=== PATIENT | female | born 1990 | race Caucasian/White ===

== ENCOUNTER 2016-06-14 09:45 | Observation (INO) | payer OTHER ==
[2016-06-14 10:47] LABS: Mean Cell Volume 94.2 fl (78-100); Mean Corpuscular Hemoglobin 30.6 pg (26-32); Mean Platelet Volume 8.8 fl (6-9.5); Platelet Count 230 K/mm3 (150-450); Red Blood Count 3.59 M/mm3 (4.1-5.4); Red Cell Distribution Width 13.6 % (11.5-14.0); White Blood Count 14.4 K/mm3 (4.0-10.5)
[2016-06-14 10:54] VITALS: BP 106/66; PULSE 96
[2016-06-14 11:04] LABS: COMPLETE URINE MICROSCOPIC? NO; Collection Type VOID
[2016-06-14 11:09] LABS: ALBUMIN 2.8 g/dL (3.4-5.0); ALKALINE PHOSPHATASE 106 U/L (46-116); ANION GAP 13.2 MEQ/L (5-15); BILIRUBIN,TOTAL 0.2 mg/dL (0.2-1.0); BLOOD UREA NITROGEN 3 mg/dL (9-20); CHLORIDE 103 mEq/L (98-107); Carbon Dioxide 26.3 mEq/L (21-32); Glucose 87 MG/DL (70-110); Potassium 3.4 mEq/L (3.5-5.1); SGOT/AST 20 U/L (15-37); SGPT/ALT 16 U/L (12-78); SODIUM 139 mEq/L (136-145)
--- NOTE | 2016-06-14 12:33 | XRAY ---
Indication: Decreased movement. Ultrasound biophysical profile study was performed. Comparison: None There is a single viable intrauterine with heart rate detected but not calculated. Four-quadrant PRABHA is 15.6 cm. Largest amniotic pocket measures 6.3 cm. 2 points given for breathing, movements, tone, and amniotic fluid volume. Impression: Total biophysical profile score is 8 out of 8.
[2016-06-14 13:25] LABS: ANISOCYTOSIS 1+; BAND 2 % (0.0-2.0); Hypochromia 1+; Platelet Estimate NORMAL (NORMAL); Polychromasia RARE; Total Cells Counted 100
== END 2016-06-14 12:00 | disposition home or self-care (01) ==
LOC: MED SURG 09:45
PROVIDERS: ADMIT Family Medicine; ATTEND Family Medicine
DX: Z34.03 Encounter for supervision of normal first pregnancy, third trimester (principal)
CPT/HCPCS: 36415; 59025; 76819; 80053; 81002; 85025; G0378

== ENCOUNTER 2016-07-16 11:07 | Observation (INO) | payer OTHER ==
--- NOTE | 2016-07-16 12:39 | XRAY ---
Indication: Decreased movement. Ultrasound biophysical profile study was performed. Comparison: June 14, 2016 There is again single viable intrauterine with four-quadrant PRABHA 16.7 cm. Largest amniotic pocket measures 6.2 cm. 2 points given for breathing, movements, tone, and amniotic fluid volume. Impression: Total biophysical profile score is again 8 out of 8.
[2016-07-16 12:59] VITALS: BP 105/61; PULSE 83
== END 2016-07-16 12:55 | disposition home or self-care (01) ==
LOC: OB 11:07
PROVIDERS: ADMIT Family Medicine; ATTEND Family Medicine
DX: Z34.03 Encounter for supervision of normal first pregnancy, third trimester (principal)
CPT/HCPCS: 59025; 76819; G0378

== ENCOUNTER 2016-07-19 14:57 | Observation (INO) | payer OTHER ==
[2016-07-19 15:53] LABS: Collection Type VOID
[2016-07-19 15:54] LABS: Bacteria RARE /HPF (NEGATIVE); COMPLETE URINE MICROSCOPIC? YES; WBC 0-2 /HPF (0-5)
[2016-07-19 15:57] LABS: BASOPHIL % 0.1 % (0.0-0.4); Eosinophil % 0.7 % (0.00-5.0); Granulocytes % 78.7 % (36.0-66.0); Mean Platelet Volume 10.1 fl (6-9.5); Monocytes % 7.5 % (0.0-12.0); Platelet Count 229 K/mm3 (150-450); Red Blood Count 3.78 M/mm3 (4.1-5.4); White Blood Count 13.5 K/mm3 (4.0-10.5)
[2016-07-19 15:58] LABS: Mean Corpuscular Hemoglobin 30.6 pg (26-32)
[2016-07-19 16:21] LABS: ALBUMIN 2.5 g/dL (3.4-5.0); ALKALINE PHOSPHATASE 124 U/L (46-116); ANION GAP 12.3 MEQ/L (5-15); BLOOD UREA NITROGEN 5 mg/dL (9-20); CHLORIDE 105 mEq/L (98-107); Carbon Dioxide 24.8 mEq/L (21-32); Glucose 104 MG/DL (70-110); Potassium 3.6 mEq/L (3.5-5.1); SGOT/AST 18 U/L (15-37); SGPT/ALT 15 U/L (12-78); SODIUM 139 mEq/L (136-145); Total Protein 6.9 gm/dL (6.4-8.2)
[2016-07-19 18:04] VITALS: BP 102/61; PULSE 91; O2SAT 98
== END 2016-07-19 16:55 | disposition home or self-care (01) ==
LOC: UNDOADMOB 14:57 → MED SURG 14:57 → UNDODISOB 16:55
PROVIDERS: ADMIT Family Medicine; ATTEND Family Medicine
DX: Z34.03 Encounter for supervision of normal first pregnancy, third trimester (principal)
CPT/HCPCS: 36415; 80053; 80307; 81000; 85025; G0378

== ENCOUNTER 2016-07-22 12:39 | Observation (INO) | payer OTHER ==
[2016-07-22] MEDS ORDERED: BRETHINE 1 MG/ML SQ PRN (18:00)
[2016-07-22] MEDS ORDERED: Cervidil 10 MG VAG SCH (19:00)
[2016-07-22] MEDS ORDERED: Zofran 4 MG/2 ML VIAL IV PRN (19:11)
[2016-07-22] MEDS ORDERED: TYLENOL EXTRA STRENGTH 500 MG PO PRN (19:11)
[2016-07-22] MEDS ORDERED: XYLOCAINE 1% HCL 20 ML MDV IJ PRN (19:11)
[2016-07-22] MEDS ORDERED: PITOCIN 30 UNITS/ LR 500 ML 500 ML IV SCH ×2 (19:30)
[2016-07-22 20:38] LABS: Mean Cell Volume 94.4 fl (78-100); Mean Corpuscular Hemoglobin 30.8 pg (26-32); Mean Platelet Volume 10.5 fl (6-9.5); Platelet Count 244 K/mm3 (150-450); Red Blood Count 4.09 M/mm3 (4.1-5.4); Red Cell Distribution Width 14.9 % (11.5-14.0); White Blood Count 16.1 K/mm3 (4.0-10.5)
[2016-07-22 22:17] LABS: Eosinophil 1 % (0.00-3.0); Platelet Estimate NORMAL (NORMAL); Total Cells Counted 100
[2016-07-23] MEDS: Lactated Ringers 1,000 ML IV SCH ×2 (08:43→16:27)
[2016-07-23] MEDS ORDERED: Augmentin 875-125 Tablet PO ONE (17:26)
[2016-07-23 18:03] VITALS: BP 102/58; PULSE 83
== END 2016-07-23 17:50 | disposition home or self-care (01) ==
LOC: OB 18:21
PROVIDERS: ADMIT Family Medicine; ATTEND Family Medicine
DX: O61.0 Failed medical induction of labor (principal); Z3A.40 40 weeks gestation of pregnancy
CPT/HCPCS: 36415; 80307; 85025; G0378; J2590; A9270-GY

== ENCOUNTER 2016-07-24 07:01 | Inpatient (IN) | payer OTHER ==
[2016-07-24] MEDS ORDERED: XYLOCAINE 1% HCL 20 ML MDV IJ PRN (07:23)
[2016-07-24] MEDS ORDERED: Augmentin 875-125 Tablet PO ONE (07:25)
[2016-07-24 08:37] LABS: BASOPHIL % 0.2 % (0.0-0.4); Eosinophil % 0.8 % (0.00-5.0); Granulocytes % 76.8 % (36.0-66.0); Lymphocytes % 12.8 % (24.0-44.0); Monocytes % 9.4 % (0.0-12.0); Platelet Count 227 K/mm3 (150-450); Red Blood Count 3.63 M/mm3 (4.1-5.4); Red Cell Distribution Width 15.1 % (11.5-14.0)
[2016-07-24 10:23] LABS: Mean Corpuscular Hemoglobin 30.8 pg (26-32)
[2016-07-24] MEDS: Lactated Ringers 1,000 ML IV SCH (21:43)
[2016-07-24] MEDS: PITOCIN 30 UNITS/ LR 500 ML 500 ML IV SCH (21:43)
[2016-07-24] MEDS ORDERED: BRETHINE 1 MG/ML SQ PRN (21:44)
[2016-07-24] MEDS ORDERED: PITOCIN 30 UNITS/ LR 500 ML 500 ML IV SCH (22:00)
[2016-07-24] MEDS ORDERED: Lactated Ringers 1,000 ML IV ONE (23:10)
[2016-07-24] MEDS ORDERED: OB EPIDURAL NAROPIN/SUFENTANIL IN NACL EPIDURAL PRN (23:10)
[2016-07-24] MEDS ORDERED: Ephedrine Sulfate 50 MG/ML IV PRN (23:10)
[2016-07-24] MEDS: OMNIPEN 1GM / NaCl 100ML 100 ML IV SCH (23:16)
[2016-07-25] MEDS: OMNIPEN 1GM / NaCl 100ML 100 ML IV SCH ×5 (02:47→19:38)
[2016-07-25] MEDS: Lactated Ringers 1,000 ML IV SCH ×3 (08:29→17:16)
[2016-07-25] MEDS ORDERED: Sensorcaine 0.25% 10 ML ONE (15:28)
[2016-07-25] MEDS: PITOCIN 30 UNITS/ LR 500 ML 500 ML IV SCH (18:00)
[2016-07-25] MEDS ORDERED: Dulcolax 10 MG SUPP PR PRN (19:04)
[2016-07-25] MEDS ORDERED: Adacel Vial IM ONE (19:04)
[2016-07-25] MEDS ORDERED: CORTISONE 1% CREAM TP PRN (19:04)
[2016-07-25] MEDS ORDERED: LANSINOH 40 GM TOP PRN (19:04)
[2016-07-25] MEDS ORDERED: NORCO 5/325 MG PO PRN (19:04)
[2016-07-25] MEDS ORDERED: Mylicon 80MG PO PRN (19:04)
[2016-07-25] MEDS ORDERED: TYLENOL EXTRA STRENGTH 500 MG PO PRN (19:04)
[2016-07-25] MEDS ORDERED: Dermoplast Spray TP PRN (19:04)
[2016-07-25] MEDS ORDERED: Anucort-HC SUPPOSITORY PR PRN (19:04)
[2016-07-25] MEDS ORDERED: Ambien 10 MG PO PRN (19:04)
[2016-07-25] MEDS ORDERED: Restoril 15 MG PO PRN (19:04)
[2016-07-25] MEDS ORDERED: TUCKS TP PRN (19:04)
[2016-07-25] MEDS ORDERED: OMNIPEN 1 GM IV ONE (20:00)
[2016-07-25] MEDS ORDERED: OMNIPEN 1GM / NaCl 100ML 100 ML ONE (20:01)
[2016-07-25] MEDS: OMNIPEN 1 GM IV SCH (20:19)
[2016-07-25 22:32] VITALS: O2SAT 98
[2016-07-25] MEDS: Colace 100 MG PO SCH (22:52)
[2016-07-26] MEDS: OMNIPEN 1 GM IV SCH ×2 (00:15→04:15)
[2016-07-26] MEDS ORDERED: OMNIPEN 1GM / NaCl 100ML 100 ML ONE ×2 (00:36→04:06)
[2016-07-26] MEDS: MOTRIN 400 MG PO PRN ×2 (02:10→11:08)
[2016-07-26 06:01] LABS: Mean Cell Volume 97.2 fl (78-100); Mean Platelet Volume 10.4 fl (6-9.5); Platelet Count 176 K/mm3 (150-450); Red Blood Count 3.26 M/mm3 (4.1-5.4); Red Cell Distribution Width 15.4 % (11.5-14.0); White Blood Count 20.5 K/mm3 (4.0-10.5)
[2016-07-26 06:10] LABS: Mean Corpuscular Hemoglobin 31.2 pg (26-32)
[2016-07-26 07:38] LABS: ANISOCYTOSIS 1+; Platelet Estimate NORMAL (NORMAL); Total Cells Counted 100
[2016-07-26 07:47] LABS: BAND 21 % (0.0-2.0)
[2016-07-26] MEDS ORDERED: OMNIPEN 1GM / NaCl 100ML 100 ML IV SCH (08:00)
[2016-07-26] MEDS: FERREX 150 PO SCH (10:55)
[2016-07-26] MEDS: Colace 100 MG PO SCH ×2 (10:55→21:26)
[2016-07-26] MEDS: Augmentin 875-125 Tablet PO SCH (21:26)
[2016-07-27] MEDS: MOTRIN 400 MG PO PRN ×2 (06:52→14:18)
[2016-07-27] MEDS: FERREX 150 PO SCH (09:14)
[2016-07-27] MEDS: Colace 100 MG PO SCH (09:14)
[2016-07-27] MEDS: Augmentin 875-125 Tablet PO SCH (09:14)
[2016-07-27 14:18] VITALS: BP 108/59; PULSE 82
== END 2016-07-27 19:50 | disposition home or self-care (01) | DRG 775 ==
LOC: OB 07:01 → OBSVTOIN 07-25 08:14 → OB 07-25 23:52
PROVIDERS: ADMIT Family Medicine; ATTEND Family Medicine
PROC: 10E0XZZ Delivery of Products of Conception, External Approach (ICD-10-PCS; principal; 2016-07-25)
PROC: 0KQM0ZZ Repair Perineum Muscle, Open Approach (ICD-10-PCS; 2016-07-25)
DX: O70.1 Second degree perineal laceration during delivery (principal); Z37.0 Single live birth; Z3A.40 40 weeks gestation of pregnancy; D72.829 Elevated white blood cell count, unspecified
CPT/HCPCS: 01967; 36415; 59025; 85025; 90715; 93012; G0378; J0290; J2590; J2795; A9270-GY

== ENCOUNTER 2018-08-24 12:51 | Observation (INO) | payer BC ==
[2018-08-24] MEDS ORDERED: Sodium Chloride 0.9% 1000 ML 1,000 ML IV SCH (14:00)
[2018-08-24 14:10] LABS: BASOPHIL % 0.1 % (0.0-0.4); Basophil (Absolute #) 0.01 (0-0.4); Eosinophil % 1.3 % (0.00-5.0); Eosinophil (Absolute #) 0.11 (0-0.5); Granulocyte Absolute (ANC) 6.59 (1.4-6.9); Granulocytes % 79.7 % (36.0-66.0); Lymphocyte (Absolute #) 0.93 (1.0-4.6); Lymphocytes % 11.2 % (24.0-44.0); Mean Cell Volume 93.4 fl (78-100); Mean Corpuscular Hemoglobin 32.8 pg (26-32); Mean Corpuscular Hgb Concent. 35.1 g/dl (32-36); Mean Platelet Volume 9.5 fl (6-9.5); Monocyte (Absolute #) 0.64 (0.0-1.3); Monocytes % 7.7 % (0.0-12.0); Platelet Count 229 K/mm3 (150-450); Red Blood Count 3.96 M/mm3 (4.1-5.4); Red Cell Distribution Width 12.5 % (11.5-14.0); White Blood Count 8.3 K/mm3 (4.0-10.5)
[2018-08-24] MEDS: Phenergan 25 MG INJ IV PRN ×2 (14:15→20:20)
[2018-08-24 14:21] LABS: ALBUMIN 3.7 g/dL (3.5-5.0); ALKALINE PHOSPHATASE 87 U/L (38-126); AMYLASE 60 U/L (30-110); ANION GAP 10.9 MEQ/L (5-15); BLOOD UREA NITROGEN 3 mg/dL (7-17); CHLORIDE 104 mmol/L (98-107); Calcium 9.1 mg/dL (8.4-10.2); Carbon Dioxide 24 mmol/L (22-30); Creatinine 1 0.48 mg/dL (0.52-1.04); Glucose 83 mg/dL (74-106); Potassium 3.4 mmol/L (3.5-5.1); SGOT/AST 17 U/L (14-36); SGPT/ALT 11 U/L (0-35); SODIUM 136 mmol/L (137-145); Total Protein 7.1 g/dL (6.3-8.2)
[2018-08-24 14:47] LABS: INFLUENZA A NEGATIVE (NEGATIVE); INFLUENZA B NEGATIVE (NEGATIVE); RESPIRATORY SYNCTIAL VIRUS NEGATIVE (Negative)
[2018-08-24] MEDS: Lactated Ringers 1,000 ML IV SCH ×2 (15:27→22:16)
[2018-08-24 18:00] LABS: Appearance CLEAR (CLEAR); Bilirubin NEGATIVE (NEGATIVE); Blood NEGATIVE Ery/ul (0-5); Glucose NEGATIVE (NEGATIVE); Ketones SMALL (NEGATIVE); Leukocyte Esterase NEGATIVE (NEGATIVE); Mucus SLIGHT /HPF (NEGATIVE); Nitrite NEGATIVE (NEGATIVE); Protein,Urine Dip NEGATIVE (Negative); Specific Gravity 1.003 (1.005-1.025); Urobilinogen NEGATIVE mg/dL (0-1)
[2018-08-24] MEDS ORDERED: TYLENOL 325 MG PO PRN (20:17)
[2018-08-25] MEDS: Lactated Ringers 1,000 ML IV SCH (05:53)
[2018-08-25 06:02] LABS: BASOPHIL % 0.4 % (0.0-0.4); Basophil (Absolute #) 0.02 (0-0.4); Eosinophil % 4.7 % (0.00-5.0); Eosinophil (Absolute #) 0.24 (0-0.5); Granulocyte Absolute (ANC) 2.48 (1.4-6.9); Granulocytes % 48.6 % (36.0-66.0); Hematocrit 33.6 % (35-47); Hemoglobin 11.6 gm/dl (12.0-16.0); Lymphocyte (Absolute #) 1.86 (1.0-4.6); Lymphocytes % 36.5 % (24.0-44.0); Mean Cell Volume 94.6 fl (78-100); Mean Corpuscular Hgb Concent. 34.5 g/dl (32-36); Mean Platelet Volume 9.8 fl (6-9.5); Monocytes % 9.8 % (0.0-12.0); Platelet Count 208 K/mm3 (150-450); Red Blood Count 3.55 M/mm3 (4.1-5.4); Red Cell Distribution Width 12.6 % (11.5-14.0); White Blood Count 5.1 K/mm3 (4.0-10.5)
[2018-08-25 06:12] LABS: Mean Corpuscular Hemoglobin 32.6 pg (26-32)
[2018-08-25 06:27] LABS: ALKALINE PHOSPHATASE 70 U/L (38-126); ANION GAP 7.8 MEQ/L (5-15); CHLORIDE 108 mmol/L (98-107); Carbon Dioxide 25 mmol/L (22-30); Creatinine 1 0.41 mg/dL (0.52-1.04); Glucose 84 mg/dL (74-106); Potassium 3.5 mmol/L (3.5-5.1); SGOT/AST 15 U/L (14-36); SGPT/ALT 10 U/L (0-35); SODIUM 137 mmol/L (137-145); Total Protein 6.1 g/dL (6.3-8.2)
[2018-08-25 06:46] LABS: BLOOD UREA NITROGEN 2 mg/dL (7-17)
--- NOTE | 2018-08-25 07:57 | PCM.HP.ADD ---
Addendum to History & Physical - History & Physical Addendum Addendum to History & Physical: This certifies that the History & Physical in the electronic chart reflects the current health status of the patient. If there are changes in the H&P these changes/exceptions are listed as follows.
--- NOTE | 2018-08-25 09:01 | PCM.DS ---
Discharge Summary Date of Admission: 08/24/18 12:51 Admitting Physician: MYRA CURTIS Primary Care Provider: MYRA CURTIS Allergies Allergies cefadroxil [From [facility] [place]] Allergy (Severe, Verified 07/23/16 03:35) [facility] Summary - Hospital Course Hospital Course: Pt is 28 go at 14 weeks who was seen in office by me yesterday for fever, nausea, and vomiting. She was admitted to [facility] for IV fluids. She did have Tmax of 102.8 here last night but none since then. With IV fluids has felt much better, tolerated clear and full liquid diets, now hungry for more substantial food. Has been congested and still c/o nasal congestion. FHT wnl in the office, none done here since admission. Her WBC were wnl on admission, 8.3, and are 5.1 this morning. Plt 208. Potassium a little low on admission, 3.4, but 3.5 this morning. Bicarb 24 at admission and 25 now. BUN/Cr have been wnl. Flu neg. Will advance to bland diet, FHT, flonase, then ok to d/c home. - Vitals & Intake/Output Vital Signs: Vital Signs Temperature 97.1 F 08/25/18 04:00 Pulse Rate 69 08/25/18 04:00 Respiratory Rate 16 08/25/18 04:00 Blood Pressure 115/61 08/25/18 04:00 O2 Sat by Pulse Oximetry 98 08/25/18 04:00 Intake & Output: Intake & Output 08/22/18 08/23/18 08/24/18 08/25/18 11:59 11:59 11:59 11:59 Intake Total 4040 Balance 4040 Weight 96.5 kg - Lab Result Diagrams: 08/25/18 05:30 08/25/18 05:30 Lab Results-Last 24 Hrs: Lab Results-Last 24 Hours 08/24/18 08/24/18 08/24/18 Range/Units 14:08 14:08 14:08 WBC 8.3 (4.0-10.5) K/mm3 RBC 3.96 L (4.1-5.4) M/mm3 Hgb 13.0 (12.0-16.0) gm/dl Hct 37.0 (35-47) % MCV 93.4 (78-100) fl MCH 32.8 H (26-32) pg MCHC 35.1 (32-36) g/dl RDW 12.5 (11.5-14.0) % Plt Count 229 (150-450) K/mm3 MPV 9.5 (6-9.5) fl Gran % 79.7 H (36.0-66.0) % Eos # (Auto) 0.11 (0-0.5) Absolute Lymphs (auto) 0.93 L (1.0-4.6) Absolute Monos (auto) 0.64 (0.0-1.3) Lymphocytes % 11.2 L (24.0-44.0) % Monocytes % 7.7 (0.0-12.0) % Eosinophils % 1.3 (0.00-5.0) % Basophils % 0.1 (0.0-0.4) % Absolute Granulocytes 6.59 (1.4-6.9) Basophils # 0.01 (0-0.4) Sodium 136 L (137-145) mmol/L Potassium 3.4 L (3.5-5.1) mmol/L Chloride 104 (98-107) mmol/L Carbon Dioxide 24 (22-30) mmol/L Anion Gap 10.9 (5-15) MEQ/L BUN 3 L (7-17) mg/dL Creatinine 0.48 L (0.52-1.04) mg/dL Estimated GFR > 60.0 ML/MIN Glucose 83 (74-106) mg/dL Calcium 9.1 (8.4-10.2) mg/dL Total Bilirubin 0.30 (0.2-1.3) mg/dL AST 17 (14-36) U/L ALT 11 (0-35) U/L Alkaline Phosphatase 87 (38-126) U/L Serum Total Protein 7.1 (6.3-8.2) g/dL Albumin 3.7 (3.5-5.0) g/dL Amylase 60 (30-110) U/L Lipase 75 (23-300) U/L Urine Color (YELLOW) Urine Appearance (CLEAR) Urine pH (5-6) Ur Specific Suring (1.005-1.025) Urine Protein (Negative) Urine Ketones (NEGATIVE) Urine Blood (0-5) Logan/ul Urine Nitrite (NEGATIVE) Urine Bilirubin (NEGATIVE) Urine Urobilinogen (0-1) mg/dL Ur Leukocyte Esterase (NEGATIVE) Urine WBC (Auto) (0-5) /HPF Urine RBC (Auto) (0-2) /HPF U Epithel Cells (Auto) (FEW) /HPF Urine Bacteria (Auto) (NEGATIVE) /HPF Urine Mucus (Auto) (NEGATIVE) /HPF Urine Culture Reflexed (NO) Urine Glucose (NEGATIVE) mg/dL Influenza Type A Ag NEGATIVE (NEGATIVE) Influenza Type B Ag NEGATIVE (NEGATIVE) RSV (PCR) NEGATIVE (Negative) 08/24/18 08/25/18 08/25/18 Range/Units 17:47 05:30 05:30 WBC 5.1 (4.0-10.5) K/mm3 RBC 3.55 L (4.1-5.4) M/mm3 Hgb 11.6 L (12.0-16.0) gm/dl Hct 33.6 L (35-47) % MCV 94.6 (78-100) fl MCH 32.6 H (26-32) pg MCHC 34.5 (32-36) g/dl RDW 12.6 (11.5-14.0) % Plt Count 208 (150-450) K/mm3 MPV 9.8 H (6-9.5) fl Gran % 48.6 (36.0-66.0) % Eos # (Auto) 0.24 (0-0.5) Absolute Lymphs (auto) 1.86 (1.0-4.6) Absolute Monos (auto) 0.50 (0.0-1.3) Lymphocytes % 36.5 (24.0-44.0) % Monocytes % 9.8 (0.0-12.0) % Eosinophils % 4.7 (0.00-5.0) % Basophils % 0.4 (0.0-0.4) % Absolute Granulocytes 2.48 (1.4-6.9) Basophils # 0.02 (0-0.4) Sodium 137 (137-145) mmol/L Potassium 3.5 (3.5-5.1) mmol/L Chloride 108 H (98-107) mmol/L Carbon Dioxide 25 (22-30) mmol/L Anion Gap 7.8 (5-15) MEQ/L BUN 2 L (7-17) mg/dL Creatinine 0.41 L (0.52-1.04) mg/dL Estimated GFR > 60.0 ML/MIN Glucose 84 (74-106) mg/dL Calcium 9.0 (8.4-10.2) mg/dL Total Bilirubin 0.20 (0.2-1.3) mg/dL AST 15 (14-36) U/L ALT 10 (0-35) U/L Alkaline Phosphatase 70 (38-126) U/L Serum Total Protein 6.1 L (6.3-8.2) g/dL Albumin 3.0 L (3.5-5.0) g/dL Amylase (30-110) U/L Lipase (23-300) U/L Urine Color STRAW (YELLOW) Urine Appearance CLEAR (CLEAR) Urine pH 6.0 (5-6) Ur Specific Suring 1.003 (1.005-1.025) Urine Protein NEGATIVE (Negative) Urine Ketones SMALL (NEGATIVE) Urine Blood NEGATIVE (0-5) Logan/ul Urine Nitrite NEGATIVE (NEGATIVE) Urine Bilirubin NEGATIVE (NEGATIVE) Urine Urobilinogen NEGATIVE (0-1) mg/dL Ur Leukocyte Esterase NEGATIVE (NEGATIVE) Urine WBC (Auto) NONE (0-5) /HPF Urine RBC (Auto) NONE (0-2) /HPF U Epithel Cells (Auto) NONE (FEW) /HPF Urine Bacteria (Auto) NONE (NEGATIVE) /HPF Urine Mucus (Auto) SLIGHT (NEGATIVE) /HPF Urine Culture Reflexed NO (NO) Urine Glucose NEGATIVE (NEGATIVE) mg/dL Influenza Type A Ag (NEGATIVE) Influenza Type B Ag (NEGATIVE) RSV (PCR) (Negative) Discharge Exam General Appearance: no apparent distress, alert Neurologic Exam: oriented x 3, cooperative Eye Exam: eyes nml inspection Ears, Nose, Throat Exam: moist mucous membranes Neck Exam: normal inspection Respiratory Exam: normal breath sounds, lungs clear, No crackles/rales, No rhonchi, No wheezing Cardiovascular Exam: regular rate/rhythm, normal heart sounds, No murmur Gastrointestinal/Abdomen Exam: soft, normal bowel sounds, No tenderness, No distention, No mass, No guarding, No rebound Extremity Exam: normal inspection, No pedal edema, No swelling Skin Exam: normal color, warm, dry, No rash Final Diagnosis/Problem List - Final Discharge Diagnosis/Problem (1) Second trimester Current Visit: Yes Status: Acute Assessment & Plan: Stable Code(s): Z34.92 - ENCNTR FOR SUPRVSN OF NORMAL PREG, UNSP, SECOND TRIMESTER (2) Vomiting Current Visit: Yes Status: Resolved Assessment & Plan: had phenergan and IV fluids. Likely viral illness. Code(s): R11.10 - VOMITING, UNSPECIFIED (3) Fever Current Visit: Yes Status: Acute Assessment & Plan: Likely viral illness. Tylenol prn temp > 100. will d/c to home today. Code(s): R50.9 - FEVER, UNSPECIFIED (4) Nasal congestion Current Visit: Yes Status: Acute Assessment & Plan: flonase Code(s): R09.81 - NASAL CONGESTION - Discharge Disposition: Home, Self-Care Condition: Good Prescriptions: New Acetaminophen 650 mg PO Q6H PRN #30 capsule PRN Reason: Fever Fluticasone Propionate [Flonase NASAL] 1 gm NS DAILY bottle Promethazine HCl 12.5 mg PO Q6H PRN #10 tablet PRN Reason: Nausea/Vomiting Continue Vits W-Ca,Fe,FA(<1Mg) [] 1 tab PO DAILY Follow up with: MYRA CURTIS [Primary Care Provider] - 1 Week
[2018-08-25 09:34] VITALS: BP 104/59; PULSE 78; O2SAT 97
[2018-08-25] MEDS ORDERED: Flonase NASAL NS SCH (10:00)
== END 2018-08-25 10:28 | disposition home or self-care (01) ==
LOC: MED SURG 12:51
PROVIDERS: ADMIT Family Medicine; ATTEND Family Medicine
DX: O21.9 Vomiting of pregnancy, unspecified (principal); Z3A.14 14 weeks gestation of pregnancy; E86.0 Dehydration; R50.9 Fever, unspecified; R09.81 Nasal congestion; R10.9 Unspecified abdominal pain
CPT/HCPCS: 36415; 80053; 81001; 82150; 83690; 85025; 87631; G0378; J2550; A9270-GY

== ENCOUNTER 2018-12-17 14:29 | Observation (INO) | payer OTHER ==
[2018-12-17 15:43] VITALS: BP 106/70; PULSE 102
== END 2018-12-17 16:05 | disposition home or self-care (01) ==
LOC: MED SURG 14:29 → UNDOADMOB 14:29 → OB 14:29
PROVIDERS: ADMIT Family Medicine; ATTEND Family Medicine
DX: Z34.83 Encounter for supervision of other normal pregnancy, third trimester (principal)
CPT/HCPCS: 59025; G0378; 81003

== ENCOUNTER 2019-02-12 20:57 | Observation (INO) | payer OTHER ==
[2019-02-12 21:34] VITALS: O2SAT 95
[2019-02-12 21:35] LABS: Appearance SLIGHTLY CLOUDY (CLEAR); Bilirubin NEGATIVE (NEGATIVE); Blood NEGATIVE Ery/ul (0-5); Epithelial Cells FEW /HPF (FEW); Glucose NEGATIVE (NEGATIVE); Ketones NEGATIVE (NEGATIVE); Leukocyte Esterase NEGATIVE (NEGATIVE); Nitrite NEGATIVE (NEGATIVE); Protein,Urine Dip NEGATIVE (Negative); Specific Gravity 1.005 (1.005-1.025); Urobilinogen NEGATIVE mg/dL (0-1); WBC 0-2 /HPF (0-5)
[2019-02-12 21:59] LABS: Hematocrit 36.7 % (35-47); Hemoglobin 11.8 gm/dl (12.0-16.0); Mean Cell Volume 98.9 fl (78-100); Mean Corpuscular Hemoglobin 31.8 pg (26-32); Mean Corpuscular Hgb Concent. 32.2 g/dl (32-36); Platelet Count 223 K/mm3 (150-450); Red Blood Count 3.71 M/mm3 (4.1-5.4); Red Cell Distribution Width 14.6 % (11.5-14.0); White Blood Count 16.5 K/mm3 (4.0-10.5)
[2019-02-12 22:07] LABS: Amphetamine,Urine NEGATIVE (NEGATIVE); Barbiturate,Urine NEGATIVE (NEGATIVE); Benzodiazepine,Urine NEGATIVE (NEGATIVE); Cocaine,Urine NEGATIVE (NEGATIVE); Methadone,Urine NEGATIVE (NEGATIVE); Opiate,Urine NEGATIVE (NEGATIVE); PCP,Urine NEGATIVE (NEGATIVE); THC,Urine NEGATIVE (NEGATIVE)
[2019-02-12 22:25] LABS: ALBUMIN 3.4 g/dL (3.5-5.0); ALKALINE PHOSPHATASE 113 U/L (38-126); ANION GAP 8.9 MEQ/L (5-15); BLOOD UREA NITROGEN 4 mg/dL (7-17); CHLORIDE 107 mmol/L (98-107); Calcium 9.3 mg/dL (8.4-10.2); Carbon Dioxide 24 mmol/L (22-30); Creatinine 1 0.47 mg/dL (0.52-1.04); Glucose 98 mg/dL (74-106); SGOT/AST 26 U/L (14-36); SGPT/ALT 11 U/L (0-35); SODIUM 136 mmol/L (137-145)
[2019-02-12] MEDS ORDERED: Sodium Chloride 0.9% 1000 ML 1,000 ML IV STA (23:01)
[2019-02-12] MEDS ORDERED: TYLENOL 325 MG PO PRN (23:03)
[2019-02-12] MEDS ORDERED: Sodium Chloride 0.9% 1000 ML 1,000 ML ONE (23:05)
[2019-02-12] MEDS ORDERED: TYLENOL 325 MG ONE (23:05)
[2019-02-12] MEDS ORDERED: Lactated Ringers 1,000 ML IV ONE (23:06)
[2019-02-12] MEDS ORDERED: Lactated Ringers 1,000 ML IV SCH (23:30)
[2019-02-13 00:52] LABS: BAND 1 % (0.0-2.0); Eosinophil 2 % (0.00-3.0); Lymphocytes 16 % (24-44); Monocyte 4 % (0.0-12.0); Neutrophils 77 % (36.0-66.0); Platelet Estimate NORMAL (NORMAL); Total Cells Counted 100
[2019-02-13 03:38] VITALS: BP 110/59; PULSE 96
== END 2019-02-13 02:20 | disposition home or self-care (01) ==
LOC: OB 20:57
PROVIDERS: ADMIT Family Medicine; ATTEND Family Medicine
DX: Z34.83 Encounter for supervision of other normal pregnancy, third trimester (principal)
CPT/HCPCS: 36415; 80053; 80307; 81001; 84550; 85025; G0378; A9270-GY

== ENCOUNTER 2019-02-22 13:57 | Observation (INO) | payer OTHER ==
[2019-02-22 16:17] VITALS: BP 104/68; PULSE 108; O2SAT 98
== END 2019-02-22 15:10 | disposition home or self-care (01) ==
LOC: OB 13:57
PROVIDERS: ADMIT Family Medicine; ATTEND Family Medicine
DX: Z34.83 Encounter for supervision of other normal pregnancy, third trimester (principal)
CPT/HCPCS: 59025; G0378

== ENCOUNTER 2019-02-24 06:22 | Inpatient (IN) | payer OTHER ==
[~2019-02-24 06:22] MED LIST: BRETHINE 1 MG/ML SQ PRN; PITOCIN 30 UNITS/ LR 500 ML 500 ML IV SCH
[2019-02-24] MEDS ORDERED: Lactated Ringers 1,000 ML IV ONE (08:52)
[2019-02-24] MEDS ORDERED: XYLOCAINE 1% HCL 20 ML MDV IJ PRN (08:52)
[2019-02-24] MEDS ORDERED: OB EPIDURAL NAROPIN/SUFENTANIL IN NACL EPIDURAL PRN (08:52)
[2019-02-24] MEDS ORDERED: Ephedrine Sulfate 50 MG/ML IV PRN (08:52)
[2019-02-24 08:59] LABS: Hematocrit 36.5 % (35-47); Hemoglobin 11.8 gm/dl (12.0-16.0); Mean Cell Volume 98.9 fl (78-100); Mean Corpuscular Hgb Concent. 32.3 g/dl (32-36); Mean Platelet Volume 10.8 fl (7.5-11.0); Platelet Count 192 K/mm3 (150-450); Red Blood Count 3.69 M/mm3 (4.1-5.4); Red Cell Distribution Width 14.8 % (11.5-14.0); White Blood Count 14.7 K/mm3 (4.0-10.5)
[2019-02-24] MEDS ORDERED: XYLOCAINE 2%/Epi 1:200000 20ML VIAL MPF IJ ONE (10:00)
[2019-02-24 10:02] LABS: Eosinophil 1 % (0.00-3.0); Lymphocytes 11 % (24-44); Monocyte 1 % (0.0-12.0); Neutrophils 87 % (36.0-66.0); Total Cells Counted 100
[2019-02-24 10:03] LABS: Platelet Estimate NORMAL (NORMAL)
[2019-02-24 10:40] LABS: Amphetamine,Urine NEGATIVE (NEGATIVE); Barbiturate,Urine NEGATIVE (NEGATIVE); Benzodiazepine,Urine NEGATIVE (NEGATIVE); Cocaine,Urine NEGATIVE (NEGATIVE); Methadone,Urine NEGATIVE (NEGATIVE); Opiate,Urine NEGATIVE (NEGATIVE); PCP,Urine NEGATIVE (NEGATIVE); THC,Urine NEGATIVE (NEGATIVE)
[2019-02-24] MEDS: Lactated Ringers 1,000 ML IV SCH ×3 (13:30→18:46)
[2019-02-24] MEDS ORDERED: Dermoplast Spray TP PRN (20:57)
[2019-02-24] MEDS ORDERED: TYLENOL EXTRA STRENGTH 500 MG PO PRN (20:57)
[2019-02-24] MEDS ORDERED: Dulcolax 10 MG SUPP PR PRN (20:57)
[2019-02-24] MEDS ORDERED: CORTISONE 1% CREAM TP PRN (20:57)
[2019-02-24] MEDS ORDERED: Ambien 10 MG PO PRN (20:57)
[2019-02-24] MEDS ORDERED: Anucort-HC SUPPOSITORY PR PRN (20:57)
[2019-02-24] MEDS ORDERED: LANSINOH 40 GM TOP PRN (20:57)
[2019-02-24] MEDS ORDERED: TUCKS TP PRN (20:57)
[2019-02-24] MEDS ORDERED: Mylicon 80MG PO PRN (20:57)
[2019-02-25] MEDS: Colace 100 MG PO SCH ×3 (01:08→21:10)
[2019-02-25] MEDS: MOTRIN 400 MG PO PRN ×3 (03:56→19:25)
[2019-02-25 05:09] LABS: Hematocrit 34.2 % (35-47); Hemoglobin 11.1 gm/dl (12.0-16.0); Mean Cell Volume 98.6 fl (78-100); Mean Corpuscular Hgb Concent. 32.5 g/dl (32-36); Mean Platelet Volume 10.3 fl (7.5-11.0); Platelet Count 191 K/mm3 (150-450); Red Blood Count 3.47 M/mm3 (4.1-5.4); White Blood Count 17.6 K/mm3 (4.0-10.5)
[2019-02-25 05:51] LABS: ABO TYPING AB; Antibody Screen NEGATIVE (NEGATIVE); RH TYPING POSITIVE
[2019-02-25] MEDS ORDERED: CLINDAMYCIN-D5W 900 MG/50 ML*** 900 MG/50 ML BAG IV SCH (06:00)
[2019-02-25] MEDS ORDERED: Reglan 10 MG/2 ML IV SCH (06:00)
[2019-02-25] MEDS ORDERED: Lactated Ringers 1,000 ML IV ONE (06:00)
[2019-02-25] MEDS ORDERED: BICITRA 30 ML CUP PO SCH (06:00)
[2019-02-25] MEDS ORDERED: Pepcid 20 MG VIAL IV SCH (06:00)
[2019-02-25 06:10] LABS: BAND 1 % (0.0-2.0); Lymphocytes 14 % (24-44); Monocyte 5 % (0.0-12.0); Neutrophils 80 % (36.0-66.0); Platelet Estimate NORMAL (NORMAL); Total Cells Counted 100
[2019-02-25] MEDS ORDERED: Sensorcaine 0.25% 10 ML ONE (06:14)
[2019-02-25] MEDS: Lactated Ringers 1,000 ML IV SCH (06:37)
[2019-02-25] MEDS ORDERED: Xylocaine-Mpf 2% 5 Ml Vial ONE (06:51)
[2019-02-25] MEDS ORDERED: Versed 2 MG/2 ML Injection ONE ×2 (07:07→07:11)
[2019-02-25] MEDS ORDERED: Marcaine 0.5%/Epinephrine 10 ML ONE (07:12)
--- NOTE | 2019-02-25 08:25 | OP ---
SURGERY DATE/TIME: 02/25/2019 0705 PREOPERATIVE DIAGNOSIS: Undesired fertility. POSTOPERATIVE DIAGNOSIS: Undesired fertility. PROCEDURE: Bilateral tubal ligation by partial salpingectomy . SURGEON: Dr. Akhtar. ANESTHESIA: Epidural. BRIEF HISTORY: The patient is a 28 year-old white female present now for elective sterilization procedure. The patient was apprised of the risks of the procedure including wound infection, bleeding, injury to intraabdominal organs and failure rate of the tubal procedure of 1:300. The patient verbalized her understanding and desired to have the procedure performed. DESCRIPTION OF PROCEDURE: The patient was prepped and draped in the supine position. She was given 900 mg of Cleocin prior to the procedure. The area was prepped and draped in sterile fashion. Marcaine was used to anesthetize the area over the incision. A 3 cm subumbilical incision was made in a horizontal fashion and carried down sharply through the fascia. The peritoneal cavity was then entered. The left fallopian tube was identified and carried down to its fimbriated end. It was elevated in its mid portion with a Bobby clamp. A hemostat was passed through an avascular section of the mesosalpinx and the tube was tied on either side of the elevated area and the interceding section excised. The exposed edges of the tube were cauterized using the Bovie and allowed to fall back in the abdominal cavity. The right tube was similarly treated. The fascia was then repaired using 0 Vicryl suture in a running fashion. The skin edge reapproximated with 4-0 Vicryl sutures in subcuticular fashion. The sponge, needle and instrument count was reported as correct at the end of the procedure. The patient was taken back to the recovery room in good condition. Estimated blood loss was minimal.
[2019-02-25 08:46] VITALS: O2SAT 97
[2019-02-25 09:30] LABS: Appearance CLOUDY (CLEAR); Bacteria FEW /HPF (NEGATIVE); Bilirubin NEGATIVE (NEGATIVE); Blood LARGE Ery/ul (0-5); Epithelial Cells RARE /HPF (FEW); Glucose NEGATIVE (NEGATIVE); Ketones NEGATIVE (NEGATIVE); Leukocyte Esterase TRACE (NEGATIVE); Mucus SLIGHT /HPF (NEGATIVE); Nitrite NEGATIVE (NEGATIVE); Protein,Urine Dip 100 (Negative); Specific Gravity 1.014 (1.005-1.025); Urobilinogen NEGATIVE mg/dL (0-1); WBC >100 /HPF (0-5)
[2019-02-25 09:31] LABS: RBC >101 /HPF (0-2)
[2019-02-25] MEDS: NORCO 5/325 MG PO PRN ×3 (11:22→21:10)
[2019-02-25] MEDS: FERREX 150 PO SCH (13:03)
[2019-02-26] MEDS: NORCO 5/325 MG PO PRN ×5 (03:25→21:11)
--- NOTE | 2019-02-26 08:23 | PCM.DS ---
Discharge Summary Date of Admission: 02/24/19 08:07 Admitting Physician: MYRA CURTIS Consults: Consults on Case 02/25/19 06:00 Notify Anesthesia Provider ROUTINE Primary Care Provider: MYRA CURTIS Allergies Allergies cefadroxil [From [facility]] Allergy (Severe, Verified 02/24/19 08:50) [facility] Summary - Hospital Course Hospital Course: Pt is 28 yo female pt of mine from [facility] who was admitted as at 40w 4d for post dates induction of labor. I performed AROM with clear fluid and pt delivered approx 12h later, , baby weight 9lb 1 oz. No complications. Small second degree laceration was repaired. Pt had BTL yesterday with Dr. Akhtar. She is having some abd soreness today, wearing abd binder, but she is tolerating po, afebrile, up out of bed, with light bleeding. Did take norco overnight for pain. Discharging pt to home today; f/u with me in 4-6 wks. - Vitals & Intake/Output Vital Signs: Vital Signs Temperature 97.6 F 02/26/19 02:00 Pulse Rate 78 02/26/19 02:00 Respiratory Rate 18 02/26/19 02:00 Blood Pressure 105/51 02/26/19 02:00 O2 Sat by Pulse Oximetry 97 02/25/19 08:38 Intake & Output: Intake & Output 02/23/19 02/24/19 02/25/19 02/26/19 11:59 11:59 11:59 11:59 Intake Total 250 2180 750 Output Total 780 1000 Balance 250 1400 -250 Weight 104.326 kg 104.326 kg - Lab Result Diagrams: 02/25/19 04:35 Lab Results-Last 24 Hrs: Lab Results-Last 24 Hours 02/24/19 02/25/19 Range/Units 07:15 07:13 Urine Color YELLOW (YELLOW) Urine Appearance CLOUDY (CLEAR) Urine pH 6.0 (5-6) Ur Specific Seffner 1.014 (1.005-1.025) Urine Protein 100 (Negative) Urine Ketones NEGATIVE (NEGATIVE) Urine Blood LARGE (0-5) Logan/ul Urine Nitrite NEGATIVE (NEGATIVE) Urine Bilirubin NEGATIVE (NEGATIVE) Urine Urobilinogen NEGATIVE (0-1) mg/dL Ur Leukocyte Esterase TRACE (NEGATIVE) Urine WBC (Auto) >100 (0-5) /HPF Urine RBC (Auto) >101 (0-2) /HPF U Epithel Cells (Auto) RARE (FEW) /HPF Urine Bacteria (Auto) FEW (NEGATIVE) /HPF Urine Mucus (Auto) SLIGHT (NEGATIVE) /HPF Urine Glucose NEGATIVE (NEGATIVE) mg/dL Hep Bs Antigen Non Reactive (Non Reactive) Discharge Exam General Appearance: no apparent distress, alert Neurologic Exam: alert, cooperative Eye Exam: eyes nml inspection Ears, Nose, Throat Exam: moist mucous membranes Neck Exam: normal inspection Respiratory Exam: normal breath sounds, lungs clear, No crackles/rales, No rhonchi, No wheezing Cardiovascular Exam: regular rate/rhythm, normal heart sounds, No murmur Gastrointestinal/Abdomen Exam: soft, normal bowel sounds, tenderness (mild diffuse), other (central wound is covered with bandage (seen by Dr. Akhtar earlier this a.m.) - clean and dry. Difficult to palpate fundus due to surgical wound.), No guarding, No rebound Back Exam: normal inspection, No rash Extremity Exam: pedal edema Skin Exam: normal color, warm, dry, No rash Final Diagnosis/Problem List - Final Discharge Diagnosis/Problem (1) Spontaneous vaginal delivery Current Visit: Yes Status: Acute Assessment & Plan: PPD #2, doing great. Home tonight. Code(s): O80 - ENCOUNTER FOR FULL-TERM UNCOMPLICATED DELIVERY (2) Anemia Current Visit: Yes Status: Acute Assessment & Plan: mild; iron for 2 weeks then stop. Code(s): D64.9 - ANEMIA, UNSPECIFIED (3) History of bilateral tubal ligation Current Visit: Yes Status: Acute Assessment & Plan: She is doing well, PPD#1 today. Home on small amt norco. INSPECT appropriate today 02/26/19. Code(s): Z98.51 - TUBAL LIGATION STATUS - Discharge Disposition: Home, Self-Care Condition: Good Prescriptions: New Ibuprofen 800 mg PO TID PRN #35 tablet PRN Reason: Pain Hydrocodone/APAP 5-325 Tab^^^ [Henning 5-325 Tablet^^^] 1 each PO TID PRN #6 tablet MDD 6 PRN Reason: Severe Pain Continue Vits W-Ca,Fe,FA(<1Mg) [] 1 tab PO DAILY Acetaminophen 325 mg PO Q6H PRN PRN Reason: Fever Ferrous Sulfate 324 mg PO DAILY #14 tablet Follow up with: MYRA CURTIS [Primary Care Provider] - 1 Week
[2019-02-26] MEDS: Colace 100 MG PO SCH ×2 (09:05→21:12)
[2019-02-26] MEDS: FERREX 150 PO SCH (09:05)
[2019-02-26] MEDS: MOTRIN 400 MG PO PRN (09:05)
[2019-02-26 21:28] VITALS: BP 119/75; PULSE 75
== END 2019-02-26 21:45 | disposition home or self-care (01) | DRG 798 ==
LOC: OB 06:22 → OBSVTOIN 08:07
PROVIDERS: ADMIT Family Medicine; ATTEND Family Medicine
PROC: 10E0XZZ Delivery of Products of Conception, External Approach (ICD-10-PCS; principal; 2019-02-24)
PROC: 0UB70ZZ Excision of Bilateral Fallopian Tubes, Open Approach (ICD-10-PCS; 2019-02-24)
PROC: 0KQM0ZZ Repair Perineum Muscle, Open Approach (ICD-10-PCS; 2019-02-24)
DX: O70.9 Perineal laceration during delivery, unspecified (principal); Z37.0 Single live birth; Z3A.40 40 weeks gestation of pregnancy; Z30.2 Encounter for sterilization; D64.9 Anemia, unspecified
CPT/HCPCS: 36415; 80307; 81001; 85025; 86850; 86900; 86901; 87086; 87340; 88302; G0378; J2250; J2590; J2795; L0625; A9270-GY